=== PATIENT | female | born 1985 | race Hispanic/Latino ===

== ENCOUNTER 2018-10-30 08:25 | Outpatient (CLI) | payer OTHER ==
--- NOTE | 2018-10-30 09:49 | ULT ---
OBSTETRIC SONOGRAM: HISTORY: Second trimester gestation. evaluation. FINDINGS: Multiple transabdominal sonographic images show single intrauterine gestation in cephalic presentatio n. The cervix is closed and 3.4 cm. Grade 0 placenta is anterior and to the maternal right. Amniotic fluid is within normal limits. No gross intracranial abnormalities. spine and kidneys are intact as visualized. Four-chamber heart shows motion at 134 bpm. Three-vessel cord shows a normal insertion. Along the anterior wall of the lower uterine segment, a well-circumscribed oval hypoechoic heterogene ous mass within the myometrium is 4.2 x 3.1 x 4.0 cm in greatest diameters. Measurements are as follows: Head circumference 21 weeks 5 days. Biparietal diameter 22 weeks 1 day. Abdominal circumference 22 weeks 0 days. Femur length 21 weeks 1 day. Hadlock 54 percentile. Estimated date of delivery based on today's sonogram 03/06/2019. IMPRESSION: 1. Single viable intrauterine gestation with estimated gestational age based on today's sonogram of 21 weeks 6 days. 2. Large fibroid at the lower anterior uterine myometrium. Transcribed Date/Time: 10/30/2018 9:54 AM
== END 2018-10-30 08:26 | disposition home or self-care (01) ==
LOC: BICULT 08:25
PROVIDERS: ATTEND Obstetrics & Gynecology
DX: O34.12 Maternal care for benign tumor of corpus uteri, second trimester (principal); D25.9 Leiomyoma of uterus, unspecified; Z3A.21 21 weeks gestation of pregnancy
CPT/HCPCS: 76805

== ENCOUNTER 2018-12-29 10:25 | Outpatient (CLI) | payer OTHER ==
--- NOTE | 2018-12-29 12:03 | ULT ---
OB ULTRASOUND: HISTORY: Size and dates. FINDINGS: Realtime imaging of the pelvis shows a single viable intrauterine in a cephalic presentatio n. The placenta is anterior in location without evidence of previa. Visually, the amniotic fluid ap pears slightly decreased and amniotic fluid index of 12.5 was obtained. measurements are as follows: BPD 8.0 cm, 32 weeks 3 days Head circumference 28.6 cm, 31 weeks 3 days Abdominal circumference 27.4 cm, 31 weeks 4 days Femur length 5.6 cm, 29 weeks 5 days Along the anterior wall of the uterus is a stable 3 x 4 cm fibroid. There also appears to be a secon d oblong-shaped fibroid measuring 1.1 x 2.9 cm deep to the placenta which also appears stable. IMPRESSION: 1. Single viable intrauterine in a cephalic presentation, overall measurements correspondi ng to a gestational age of 31 weeks 2 days, estimated date of delivery 02/28/2019. This appears to be a normal progression of since the previous 10/30/2018 ultrasound. 2. Placenta which his anterior in location without evidence of previa. 3. Stable uterine fibroids. 4. Estimated weight 1670 +/- 240 gm. 5. Amniotic fluid index was 12.5. Visually, the fluid appears slightly diminished. POS: [facility]
== END 2018-12-29 10:26 | disposition home or self-care (01) ==
LOC: BICULT 10:25
PROVIDERS: ATTEND Obstetrics & Gynecology
DX: O34.13 Maternal care for benign tumor of corpus uteri, third trimester (principal); Z3A.31 31 weeks gestation of pregnancy
CPT/HCPCS: 76815

== ENCOUNTER 2019-01-15 08:32 | Outpatient (CLI) | payer OTHER ==
--- NOTE | 2019-01-15 10:50 | ULT ---
OB ULTRASOUND: Date: 01/15/19 INDICATION: Assess growth. Comparison made to recent OB ultrasound of 12/29/18. FINDINGS: Single viable intrauterine again noted. Gestational age by ultrasound is 33 weeks/3 days. BPD: 34 weeks 5 days HC: 35 weeks 4 days AC: 32 weeks 5 days FL: 30 weeks 5 days EFW: 1984 gm, 33 weeks 1 day Position: Vertex. Placenta: Anterior. Amniotic fluid: Adequate. ISAIAH recorded at 13.32 cm. heart rate: 121 bpm. There are uterine fibroids again seen, which were previously described and are unchanged in appearanc e. anatomy evaluation not performed. IMPRESSION: 30 weeks and 3 days gestation by ultrasound. POS: [facility]
== END 2019-01-15 08:33 | disposition home or self-care (01) ==
LOC: BICULT 08:32
PROVIDERS: ATTEND Obstetrics & Gynecology
DX: Z34.03 Encounter for supervision of normal first pregnancy, third trimester (principal); Z3A.30 30 weeks gestation of pregnancy
CPT/HCPCS: 76816

== ENCOUNTER 2019-03-04 11:30 | Inpatient (IN) | payer MEDICAID, OTHER, SELFPAY ==
[2019-03-04] MEDS ORDERED: hydrALAZINE 20 MG/ML VIAL SLOW IVP PRN ×2 (12:05→14:14)
--- NOTE | 2019-03-04 12:05 | PDOC.FPROB ---
FMR OB H&P: HPI - History of Present Illness Chief Complaint: LOF Indentification: 33yo G1 at 38.2wks History of Present Illness: 33yo G1 at 38.2wks presenting for concern of sROM at 10am. Reports placing a pad afterwards and has changed it 3 times with only minimal saturation. Denies vaginal bleeding, contractions, abnormal discharge. Endorses FM. No intercourse in last 48hrs. Does endorse some increased frequency of urination over the last 2 days. Primary Care Physician: Dr Silveira FMR OB H&P: Current - Care : 1 Para: 0 Gestational age: 39.5 Due date: 03/16/19 Course/Complications: None - OB Labs Blood type: A RH: positive Antibody Screen: negative HIV: negative RPR: negative HepBsAg: negative Rubella: immune Gonorrhea: negative Chlamydia: negative FMR OB H&P: History - Past Medical History PMH: None - OB History OB History: None - THERAPY ASSISTANT History THERAPY ASSISTANT History: Normal PAP 07/31/18 - Surgical History Sx History: None - Social History Social History: Denies alcohol, tobacco and drug use. - Family History Family History: Noncontributory FMR OB H&P: Medications - Current Home Medications: Medication Instructions Recorded Confirmed Type Vitamin 1 tablet PO DAILY 03/04/19 03/04/19 History Allergies/Adverse Reactions: Allergies Allergy/AdvReac Type Severity Reaction Status Date / Time No Known Allergies Allergy Unverified 03/04/19 12:19 FMR OB H&P: ROS - Review of Systems General: denies: fever/chills, fatigue Eyes: denies: vision changes, double vision, scotomas, floaters ENT: denies: nasal congestion, sore throat Cardiovascular: denies: chest pain, palpitation Respiratory: denies: cough, shortness of breath Gastrointestinal: denies: abdominal pain, nausea, vomiting Genitourinary (Female): denies: dysuria, hematuria, vaginal discharge, vaginal pain, vaginal bleeding, contractions Musculoskeletal: denies: pain, swelling Neurologic: denies: weakness, headache Integumentary: denies: rash, lesions Psychological: denies: depression, anxiety FMR OB H&P: Vital Signs - Heart Tones Baseline: 130 Variability: minimal Acceleration: absent Deceleration: absent Category: category 2 (Form minimal variablility, has not eaten today) FMR OB H&P: Physical Exam - Physical Exam General: NAD, awake, alert and oriented HEENT: normocephalic and atraumatic, MMM, conjunctiva clear, grossly normal hearing, oropharynx clear Neck: supple, trachea midline Heart: RRR, no murmurs/rubs/gallops General: CTAB, no respiratory distress, good air movement Abdomen: soft, gravid, non-tender Musculoskeletal: pulses present, no misalignment/asymmetry Neurological: no focal deficit Skin: no rash, good tugor, capillary refill <2 seconds Psychiatric: intact recent and remote memory, good judgement and insight, normal mood and affect - Pelvic Exam Vulva: normal hair distribution, no masses, no lesions, no discharge, no blood SVE: Closed on speculum exam FMR OB H&P: A/P Disposition: 33yo G1 at 38.2wks sIUP - FHTs Cat 2 for minimal variability. She has not eaten or drank anything today. Will give PO hydration. - Contractions every 5-7min, not feeling them - Cervix closed on speculum exam, some clear fluid present in vagina but no leakage from os - Amnisure sent Discussion: Date/Time: 03/04/19 1204 This H&P was discussed with [] and [] who agree with the above documentation and plan. Addendum - Attending - Attending Attestation Date/Time: 03/04/191948 I personally evaluated the patient and discussed the management with Dr. Guzman I agree with the History, Examination, Assessment and Plan documented above with any addition or exceptions noted below. PT presents with lof. She reports undergarments continue to be wetted . denies vb,intercourse. contractions q20min vitals reviewed and wnl amnisure test neg, pt 38wks SROM - admitted for iol cytotec. Dr Dunn notified and managing until Dr Silveira, primary OB takes over care.
[2019-03-04 12:26] VITALS: BMI 34.7
[2019-03-04 13:11] LABS: Amnisure Test RUPTURE DETECTED (No Rupture)
[2019-03-04 13:13] LABS: Amnisure Internal Control QC ACCEPTABLE (ACCEPTABLE)
[2019-03-04 13:29] LABS: Bacteria/HPF None Seen HPF (None Seen); Bilirubin Negative (Negative); Blood, Urine Negative (Negative); Clarity Clear (Clear); Glucose, Urine (Dipstick) Normal (Negative); Leukocyte Negative Leu/uL (Negative); Mucous/LPF 1+ LPF (<2+); Nitrite Negative (Negative); Protein, Urine (Dipstick) 30 mg/dL (Neg-Trace); RBC/HPF 0-3 HPF (0-3); Renal Epithelial 0-3 HPF (None Seen); Squamous Epithelial 0-3 HPF (0-3); Transitional Epithelial 0-3 HPF (None Seen); Urobilinogen Normal mg/dL (Less than 2); WBC/HPF 0-3 HPF (0-3)
[2019-03-04 13:31] LABS: Urine Culture Reflex No No
[2019-03-04] MEDS ORDERED: Promethazine HCl 25 MG/ML VIAL IM PRN (14:14)
[2019-03-04] MEDS ORDERED: Lidocaine 1% (PF) 30 ML VIAL SC PRN (14:14)
[2019-03-04] MEDS ORDERED: NS / Oxytocin 40 units/1000ml 1,000 ML IV PRN (14:14)
[2019-03-04] MEDS ORDERED: Ondansetron PF 4 MG/2 ML Vial IVP PRN (14:14)
[2019-03-04] MEDS ORDERED: Misoprostol 100 MCG TAB VAG SCH (14:15)
--- NOTE | 2019-03-04 14:18 | PDOC.EVN ---
Event Note - Event Note Event Note: Aminsure positive. Will contact Dr Dunn. Orders placed for admission to L&D
[2019-03-04] MEDS ORDERED: Misoprostol 100 MCG TAB PO SCH (15:00)
[2019-03-04 15:23] LABS: Mean Corpuscular HGB CONC 34.4 g/dL (32.0-36.0); Mean Corpuscular Hemoglobin 30.5 pg (27.0-31.0); Mean Corpuscular Volume 88.8 fL (78.0-98.0); Mean Platelet Volume 8.5 fL (7.4-10.4); Platelet Count 290 thou/uL (130-400); RBC Distribution Width 13.5 % (11.5-14.5); Red Blood Cell (RBC) Count 4.25 mill/uL (4.20-5.40); White Blood Cell (WBC) Count 9.2 thou/uL (4.8-10.8)
[2019-03-04 16:01] LABS: Syphilis Antibody Nonreactive (Nonreactive); Syphilis Antibody Index 0.05 S/CO (<1.00 Non-Reactive)
[2019-03-04 16:02] LABS: HBSAg Index 0.18 S/CO (0-0.99); Hep B Surf Ag Non-Reactive S/CO (NonReactive)
[2019-03-04] MEDS: Misoprostol 100 MCG TAB PO SCH ×2 (19:28→22:00)
[2019-03-04] MEDS ORDERED: Oxytocin 10 UNITS/ML VIAL ONE (19:48)
[2019-03-04] MEDS: Lactated Ringer's 1,000 ML IV SCH (21:59)
[2019-03-04] MEDS ORDERED: NS w/ Oxytocin 10 units 500 ML IV SCH (23:45)
[2019-03-05] MEDS: NS w/ Oxytocin 10 units 500 ML IV SCH (00:09)
[2019-03-05] MEDS: Misoprostol 100 MCG TAB PO SCH (00:29)
[2019-03-05] MEDS: Lactated Ringer's 1,000 ML IV SCH ×3 (05:39→21:43)
[2019-03-05] MEDS ORDERED: Lidocaine 1.5%/Epinephrine 1:200,000 5 ML AMPUL IJ ONE (13:00)
[2019-03-05] MEDS ORDERED: Fentanyl 4 mcg/Bup 0.1% Cadd 100 ML ONE (13:01)
[2019-03-05] MEDS ORDERED: Ondansetron PF 4 MG/2 ML Vial IVP PRN ×2 (13:39→20:51)
[2019-03-05] MEDS ORDERED: Acetaminophen 325 MG TAB PO PRN (13:39)
[2019-03-05] MEDS ORDERED: Promethazine HCl 25 MG/ML VIAL IM PRN (13:39)
[2019-03-05] MEDS ORDERED: diphenhydrAMINE 50 MG/ML VIAL IVP PRN (13:39)
[2019-03-05] MEDS ORDERED: Lactated Ringer's 500 ML IV PRN (13:39)
[2019-03-05] MEDS ORDERED: ePHEDrine/0.9% NaCl/PF SYRINGE 50 mg/10 ml SLOW IVP PRN (13:39)
[2019-03-05] MEDS ORDERED: Naloxone HCl 0.4 mg/ml Vial IVP PRN ×2 (13:39)
[2019-03-05] MEDS ORDERED: Ondansetron PF 4 MG/2 ML Vial ONE (13:43)
[2019-03-05] MEDS ORDERED: Lidocaine 2% PF 5 ML VIAL ONE (13:43)
[2019-03-05] MEDS ORDERED: Fentanyl 4 mcg/Bupivacaine 0.1% Cassette 100 ML EPIDURAL SCH (13:45)
[2019-03-05] MEDS ORDERED: Communication Order-Pharmacy FS SCH (13:45)
[2019-03-05] MEDS ORDERED: Misoprostol 200 MCG TAB ONE (18:37)
[2019-03-05] MEDS ORDERED: Methylergonovine 0.2 MG/ML VIAL ONE (18:42)
[2019-03-05] MEDS ORDERED: Midazolam HCl 2 mg/2 ml Vial ONE (19:24)
[2019-03-05] MEDS ORDERED: Famotidine/PF 20 mg/2ml Vial ONE (19:24)
[2019-03-05] MEDS ORDERED: hydrALAZINE 20 MG/ML VIAL SLOW IVP PRN (20:51)
[2019-03-05] MEDS ORDERED: HYDROcodone/Acetaminophen 5/325 mg Tablet PO PRN ×2 (20:51)
[2019-03-05] MEDS ORDERED: Bisacodyl 10 MG SUPP PR PRN (20:51)
[2019-03-05] MEDS ORDERED: Milk Of Magnesia 30 ML UDCUP PO PRN (20:51)
[2019-03-05] MEDS ORDERED: Preparation H Ointment 28 GM TUBE PR PRN (20:51)
[2019-03-05] MEDS ORDERED: Benzocaine-Menthol 82.5 ML CAN TOP PRN (20:51)
[2019-03-05] MEDS ORDERED: Lanolin Ointment 7 GM TUBE TOP PRN (20:51)
[2019-03-05] MEDS ORDERED: Adacel (T-DAP) 0.5 ML SYRINGE IM ONE (20:51)
[2019-03-05] MEDS ORDERED: NS / Oxytocin 40 units/1000ml 1,000 ML IV SCH (21:00)
[2019-03-05] MEDS: Ibuprofen 800 MG TAB PO SCH (21:37)
[2019-03-05] MEDS: Docusate Calcium (SURFAK) 240 MG CAP PO SCH (21:43)
[2019-03-06] MEDS: Misoprostol 100 MCG TAB PO SCH ×6 (01:38→22:58)
[2019-03-06] MEDS: NS w/ Oxytocin 10 units 500 ML IV SCH (01:40)
[2019-03-06] MEDS: Lactated Ringer's 1,000 ML IV SCH ×2 (03:35→17:01)
[2019-03-06 05:13] LABS: #Lymphocytes 2.3 thou/uL (1.20-3.40); #Monocytes 1.5 thou/uL (0.11-0.59); #Neutrophils 10.6 thou/uL (1.40-6.50); %Basophils 0.2 % (0.0-1.0); %Eosinophils 0.3 % (0.0-10.0); %Lymphocytes 15.6 % (21.0-51.0); %Monocytes 10.4 % (0.0-10.0); %Neutrophils 73.5 % (42.0-75.0); Hemoglobin 9.1 g/dL (12.0-16.0); Mean Corpuscular HGB CONC 34.1 g/dL (32.0-36.0); Mean Corpuscular Hemoglobin 30.5 pg (27.0-31.0); Mean Corpuscular Volume 89.6 fL (78.0-98.0); Mean Platelet Volume 8.3 fL (7.4-10.4); Platelet Count 188 thou/uL (130-400); RBC Distribution Width 13.1 % (11.5-14.5); Red Blood Cell (RBC) Count 2.97 mill/uL (4.20-5.40); White Blood Cell (WBC) Count 14.5 thou/uL (4.8-10.8)
[2019-03-06] MEDS: Ibuprofen 800 MG TAB PO SCH ×3 (05:46→22:07)
[2019-03-06] MEDS: Ferrous Sulfate 325 MG TAB PO SCH ×2 (17:01→17:45)
[2019-03-06] MEDS: Prenatal Vitamin 1 TAB PO SCH (17:02)
[2019-03-06] MEDS: Docusate Calcium (SURFAK) 240 MG CAP PO SCH ×2 (17:02→21:25)
[2019-03-07] MEDS: Ibuprofen 800 MG TAB PO SCH ×3 (05:17→21:37)
[2019-03-07] MEDS: Misoprostol 100 MCG TAB PO SCH ×4 (07:20→17:09)
[2019-03-07] MEDS: NS w/ Oxytocin 10 units 500 ML IV SCH (07:20)
[2019-03-07] MEDS: Lactated Ringer's 1,000 ML IV SCH ×2 (07:20→14:51)
[2019-03-07] MEDS: Prenatal Vitamin 1 TAB PO SCH (09:18)
[2019-03-07] MEDS: Docusate Calcium (SURFAK) 240 MG CAP PO SCH ×2 (09:18→21:38)
[2019-03-07] MEDS: Ferrous Sulfate 325 MG TAB PO SCH ×2 (09:18→18:27)
[2019-03-08] MEDS: Misoprostol 100 MCG TAB PO SCH ×3 (06:18→13:57)
[2019-03-08] MEDS: Ibuprofen 800 MG TAB PO SCH ×2 (06:20→13:31)
[2019-03-08] MEDS: Prenatal Vitamin 1 TAB PO SCH (08:19)
[2019-03-08] MEDS: Ferrous Sulfate 325 MG TAB PO SCH (08:19)
[2019-03-08] MEDS: Lactated Ringer's 1,000 ML IV SCH ×2 (08:20→13:57)
[2019-03-08] MEDS: NS w/ Oxytocin 10 units 500 ML IV SCH ×2 (08:20→09:23)
[2019-03-08] MEDS: Docusate Calcium (SURFAK) 240 MG CAP PO SCH (08:21)
[2019-03-08 08:41] VITALS: BP 105/55; TEMP 98.1
== END 2019-03-08 16:30 | disposition home or self-care (01) | DRG 806 ==
LOC: L&D/OP 11:30 → L&D 03-05 01:40 → 3SW 03-06 16:26
PROVIDERS: ADMIT Obstetrics & Gynecology; ATTEND Obstetrics & Gynecology
PROC: 10E0XZZ Delivery of Products of Conception, External Approach (ICD-10-PCS; principal; 2019-03-05)
PROC: 0KQM0ZZ Repair Perineum Muscle, Open Approach (ICD-10-PCS; 2019-03-05)
PROC: 3E0P7VZ Introduction of Hormone into Female Reproductive, Via Natural or Artificial Opening (ICD-10-PCS; 2019-03-05)
DX: O76 Abnormality in fetal heart rate and rhythm complicating labor and delivery (principal); O72.1 Other immediate postpartum hemorrhage; Z37.0 Single live birth; Z3A.38 38 weeks gestation of pregnancy; O70.1 Second degree perineal laceration during delivery; O69.81X0 Labor and delivery complicated by cord around neck, without compression, not applicable or unspecified
CPT/HCPCS: 36415; 36430; 51702; 81001; 82805; 84112; 85025; 85027; 86780; 86850; 86900; 86901; 87340; 99285; J2001; J2210; J2250; J2405; J2590; J3490; P9016; S0028